=== PATIENT | female | born 1950 | race Caucasian/White ===

== ENCOUNTER → 2018-09-25 | Outpatient (CLI) | payer OTHER ==
[~2018-09-25] MED LIST: HYDACE5 PO
[2018-09-25 15:54] LABS: BASOPHILS ABSOLUTE AUTO 0.06 K/mm3 (0.00-0.23); BASOPHILS PERCENT AUTO 1 % (0-2); EOSINOPHILS ABSOLUTE AUTO 0.33 K/mm3 (0.00-0.68); EOSINOPHILS PERCENT AUTO 6 % (0-6); Hematocrit 42.2 % (33.0-51.0); Hemoglobin 14.4 g/dL (11.5-16.0); IMMATURE GRAN ABSOLUTE AUTO 0.02 K/mm3 (0.00-0.10); IMMATURE GRAN PERCENT AUTO 0 % (0-1); LYMPHOCYTES ABSOLUTE AUTO 1.79 K/mm3 (0.84-5.20); LYMPHOCYTES PERCENT AUTO 31 % (21-46); MONOCYTES ABSOLUTE AUTO 0.47 K/mm3 (0.16-1.47); MONOCYTES PERCENT AUTO 8 % (4-13); Mean Corpuscular HGB 32.8 pg (26.0-34.0); Mean Corpuscular HGB Conc 34.1 g/dL (31.5-36.5); Mean Corpuscular Volume 96 fL (80-100); Mean Platelet Volume 8.7 fL (9.1-12.4); NEUTROPHILS PERCENT AUTO 54 % (41-73); Platelet Count 196 K/mm3 (150-400); RDW Standard Deviation 41.9 fL (35.1-46.3); Red Blood Cell Count 4.39 M/mm3 (3.80-5.20); White Blood Cell Count 5.77 K/mm3 (4.00-11.30)
[2018-09-25 16:06] LABS: Alanine Aminotransfer (ALT/SGP 25 U/L (12-78); Albumin, Blood 3.9 g/dL (3.4-5.0); Albumin/Globulin Ratio 1.2 (0.8-1.8); Alk Phos 83 U/L (40-126); Anion Gap 9 mmol/L (6-16); Aspartate Aminotrans (AST/SGOT 18 U/L (12-37); Bilirubin, Total 0.4 mg/dL (0.1-1.0); Blood Urea Nitrogen 17 mg/dL (8-24); Bun/Creatinine Ratio 19.3 (12.0-20.0); CO2, Blood 27 mmol/L (21-32); Calcium, Blood 8.6 mg/dL (8.5-10.1); Chloride, Blood 104 mmol/L (98-108); Creatinine, Blood 0.88 mg/dL (0.40-1.00); Globulin, Blood 3.3 g/dL (2.2-4.0); Glomerular Filtration Rate >60 (60-); Glucose, Blood 108 mg/dL (70-99); Potassium, Blood 4.5 mmol/L (3.5-5.5); Sodium, Blood 140 mmol/L (136-145); Total Protein, Blood 7.2 g/dL (6.4-8.2)
== END | disposition home or self-care (01) ==
LOC: LAB EV 15:50 → LAB SHORT 15:50
PROVIDERS: General Practice
DX: R10.32 Left lower quadrant pain (principal)
CPT/HCPCS: 80053; 85025

== ENCOUNTER 2021-02-25 06:33 | Day surgery (SDC) | payer OTHER ==
[~2021-02-25] VITALS: Ht 160 cm; Wt 63.5 kg
[~2021-02-25 06:33] MED LIST changes: +Acetaminophen650 M1; +BUPR150ER PO; +Budeprion Xl300 MG PO; +FISH OIL EC 1,1 EAC1; +Hair, Skin & N1 EACH; +LAMO100; +LEVSOD100 PO; +MYRBETRIQ25 MG; +NAPR500EC; +PAROXETINE7.5 MG; +TRIPLE FLEX CA1 EACH; +Valtrex1000 MG; +Vitamin D2000 UNIT PO
[2021-02-25] MEDS ORDERED: VALA500 PO (07:01)
[2021-02-25] MEDS ORDERED: CLOP75 PO (09:08)
[2021-02-25] MEDS ORDERED: ASPI81CH PO (09:08)
[2021-02-25] MEDS ORDERED: ATOR20 PO (09:09)
--- NOTE | 2021-02-25 09:44 | NUR ---
PT LAYING IN RECLINER AND APPEARS IN NO ACUTE DISTRESS. PT PROVIDED WITH TWO NEW WARM BLANKETS. RRAD ACCESS WITH NO OOZING, HEMATOMA OR BLEEDING NOTED. PT DENIES ANY PAIN OR ANY OTHER CONCERNS. VSS. WILL CONTINUE TO MONITOR.
--- NOTE | 2021-02-25 10:54 | NUR ---
3mL AIR RELEASED FROM TR BAND. NO OOZING OR HEMATOMA NOTED. SMALL AMOUNT OF TRACK BLEEDING NOTED. PT DENIES ANY PAIN. VSS. WILL CONTINUE TO MONITOR.
--- NOTE | 2021-02-25 11:10 | NUR ---
all air removed from TR band-cdi no hematoma noted.
--- NOTE | 2021-02-25 11:59 | NUR ---
DISCHARGE PT AMBULATED TO RESTROOM AND DRESSED SELF WITH NO COMPLICATIONS. PTS RRAD ACCESS SITE CLEANED, CLOTH DOT DRESSING APPLIED. NO BLEEDING, OOZING OR HEMATOMA NOTED. PT AND SPOUSE STATE THEIR UNDERSTANDING OF DISCHARGE AND SITE CARE INSTRUCTIONS AND BOTH DENY ANY QUESTIONS OR CONCERNS UPON DC. IV DCD WITH CATH INTACT. VSS. PT TAKEN TO EXIT VIA WHEELCHAIR WHERE WAS WAITING WITH VEHICLE.
--- NOTE | 2021-02-25 12:05 | NUR ---
pt discharged with white arm board on arm and a sling.
== END 2021-02-25 12:00 | disposition home or self-care (01) ==
LOC: MHTC 06:33
DX: I35.0 Nonrheumatic aortic (valve) stenosis (principal); I25.10 Atherosclerotic heart disease of native coronary artery without angina pectoris; I34.0 Nonrheumatic mitral (valve) insufficiency; I38 Endocarditis, valve unspecified; I51.89 Other ill-defined heart diseases; I10 Essential (primary) hypertension; E03.9 Hypothyroidism, unspecified; G47.33 Obstructive sleep apnea (adult) (pediatric); F32.9 Major depressive disorder, single episode, unspecified; M19.90 Unspecified osteoarthritis, unspecified site; E78.00 Pure hypercholesterolemia, unspecified; Z88.0 Allergy status to penicillin; Z86.711 Personal history of pulmonary embolism; Z98.1 Arthrodesis status; Z96.611 Presence of right artificial shoulder joint
CPT/HCPCS: 76937; 85347; 93454; 99152; 99153; A9270; C1725; C1769; C1874; C1887; C1894; C9600; J1644; J2250; J2370; J3010; J7030; J7050; Q9967

== ENCOUNTER → 2021-06-30 | Outpatient (CLI) | payer OTHER ==
[~2021-06-30] MED LIST changes: +ASPI81CH PO; +ATOR20 PO; +CLOP75 PO; +VALA500 PO
[2021-06-30 17:12] LABS: BASOPHILS ABSOLUTE AUTO 0.06 K/mm3 (0.00-0.23); BASOPHILS PERCENT AUTO 1 % (0-2); EOSINOPHILS PERCENT AUTO 9 % (0-6); Hematocrit 29.3 % (33.0-51.0); Hemoglobin 9.3 g/dL (11.5-16.0); IMMATURE GRAN ABSOLUTE AUTO 0.03 K/mm3 (0.00-0.10); IMMATURE GRAN PERCENT AUTO 1 % (0-1); LYMPHOCYTES ABSOLUTE AUTO 1.08 K/mm3 (0.84-5.20); LYMPHOCYTES PERCENT AUTO 23 % (21-46); MONOCYTES PERCENT AUTO 13 % (4-13); Mean Corpuscular HGB 32.4 pg (26.0-34.0); Mean Corpuscular HGB Conc 31.7 g/dL (31.5-36.5); Mean Corpuscular Volume 102 fL (80-100); Mean Platelet Volume 9.7 fL (9.1-12.4); NEUTROPHILS ABSOLUTE AUTO 2.56 K/mm3 (1.96-9.15); NEUTROPHILS PERCENT AUTO 54 % (41-73); Platelet Count 221 K/mm3 (150-400); RDW Coefficient Variation 18.6 % (11.7-14.2); RDW Standard Deviation 66.7 fL (35.1-46.3); Red Blood Cell Count 2.87 M/mm3 (3.80-5.20); White Blood Cell Count 4.73 K/mm3 (4.00-11.30)
[2021-06-30 17:20] LABS: Bun/Creatinine Ratio 19.8 (12.0-20.0); Calcium, Blood 8.2 mg/dL (8.5-10.1); Creatinine, Blood 1.01 mg/dL (0.40-1.00); Magnesium, Blood 2.2 mg/dL (1.6-2.4)
== END | disposition home or self-care (01) ==
LOC: LAB SHORT 17:04
PROVIDERS: Family Medicine
DX: I35.0 Nonrheumatic aortic (valve) stenosis (principal); E83.42 Hypomagnesemia
CPT/HCPCS: 80048; 83735; 85025

== ENCOUNTER 2025-01-01 12:15 | Day surgery (SDC) | payer OTHER ==
[~2025-01-01] VITALS: Ht 160 cm; Wt 62.7 kg
[~2025-01-01 12:15] MED LIST changes: +Lactated Ringer's 0 ML IV ONE
[2025-01-01] MEDS ORDERED: CeFAZolin Sodium 2,000 MG VIAL ONE (12:35)
[2025-01-01] MEDS ORDERED: Lidocaine HCl 2% 10 ML SDA ONE (13:22)
[2025-01-01 13:24] VITALS: BP 128/68
[2025-01-01] MEDS ORDERED: Lactated Ringer's 1,000 ML IV ONE (13:24)
--- NOTE | 2025-01-01 13:25 | NUR ---
01/01/25 1325 Adler,Nino SWELLING NOTED ON RIGHT HAND. DR BEAN IS AWARE.
[2025-01-01] MEDS ORDERED: propofoL 0 ML IV ONE (14:26)
== END 2025-01-01 15:15 | disposition home or self-care (01) ==
LOC: ORSCSDS 12:15
DX: S52.021A Displaced fracture of olecranon process without intraarticular extension of right ulna, initial encounter for closed fracture (principal); I26.99 Other pulmonary embolism without acute cor pulmonale; I27.20 Pulmonary hypertension, unspecified; S52.032A Displaced fracture of olecranon process with intraarticular extension of left ulna, initial encounter for closed fracture; Z01.818 Encounter for other preprocedural examination; Z53.9 Procedure and treatment not carried out, unspecified reason
CPT/HCPCS: J0690; J2003; J2704; J7120

== ENCOUNTER 2025-01-04 09:50 | Day surgery (SDC) | payer OTHER ==
[~2025-01-04] VITALS: Ht 160 cm; Wt 61.0 kg
[~2025-01-04 09:50] MED LIST changes: -Lactated Ringer's 0 ML IV ONE; +Lactated Ringer's 1,000 ML IV ONE; +Lidocaine HCl 2% 10 ML SDA ONE
[2025-01-04] MEDS ORDERED: CeFAZolin Sodium 2,000 MG VIAL ONE (10:13)
[2025-01-04] MEDS ORDERED: ALEN70 PO (10:24)
[2025-01-04] MEDS ORDERED: BENADRYL25 MG PO (10:25)
[2025-01-04] MEDS ORDERED: DOCU100 PO (10:26)
[2025-01-04] MEDS ORDERED: CALCIUM CIT 311 EAC7 PO (10:26)
[2025-01-04] MEDS ORDERED: [UNRECOGNIZED DRUG - OTHER] PO (10:27)
[2025-01-04] MEDS ORDERED: FISH OIL 1,2001 EAC4 PO (10:27)
[2025-01-04] MEDS ORDERED: GLUCO/CHON (10:28)
[2025-01-04] MEDS ORDERED: IRON18 M1 PO (10:29)
[2025-01-04] MEDS ORDERED: LAMO100 PO (10:29)
[2025-01-04] MEDS ORDERED: MULVITA PO (10:31)
[2025-01-04] MEDS ORDERED: MELATONIN5 M1 PO (10:31)
[2025-01-04] MEDS ORDERED: MAGCIT300 PO (10:31)
[2025-01-04] MEDS ORDERED: PARO10 PO (10:32)
[2025-01-04] MEDS ORDERED: SENN187 PO (10:33)
[2025-01-04] MEDS ORDERED: EUTHYROX88 MCG PO (10:33)
[2025-01-04] MEDS ORDERED: PROBIOTIC (10:33)
[2025-01-04] MEDS ORDERED: Lactated Ringer's 1,000 ML IV ONE (10:43)
[2025-01-04] MEDS ORDERED: FentaNYL Citrate 50 MCG/ML 2 ML Injection ONE (11:10)
[2025-01-04] MEDS ORDERED: Midazolam HCl 1MG / ML 2ML Vial ONE (11:10)
[2025-01-04] MEDS ORDERED: Bupivacaine 0.5% HCl 5 MG/ML 30MLVIAL ONE (11:30)
[2025-01-04] MEDS ORDERED: propofoL 20 ML IV ONE (11:55)
[2025-01-04] MEDS ORDERED: Rocuronium Bromide 10 MG/ML 5ML Injection IV ONE (11:56)
--- NOTE | 2025-01-04 11:57 | NUR ---
01/04/25 1157 AdlerNino valenzuela TIME OUT AT 1138. DR HOYOS PERFORMED NERVE BLOCK. PT TOLERATED BLOCK WELL.
[2025-01-04] MEDS ORDERED: Dexamethasone Sod Phos 10 MG/ML 1ML VIAL ONE (12:43)
[2025-01-04] MEDS ORDERED: Ondansetron HCl 2 MG / ML 2ML Vial ONE (12:43)
[2025-01-04 15:11] VITALS: BP 114/61
== END 2025-01-04 15:23 | disposition home or self-care (01) ==
LOC: ORSCSDS 09:50
PROVIDERS: Orthopaedic Surgery
PROC: 0PSK04Z Reposition Right Ulna with Internal Fixation Device, Open Approach (ICD-10-PCS; principal; 2025-01-04 11:15)
DX: S52.021A Displaced fracture of olecranon process without intraarticular extension of right ulna, initial encounter for closed fracture (principal); I25.10 Atherosclerotic heart disease of native coronary artery without angina pectoris; E78.5 Hyperlipidemia, unspecified; G47.33 Obstructive sleep apnea (adult) (pediatric); E03.9 Hypothyroidism, unspecified; F32.A Depression, unspecified; Z79.899 Other long term (current) drug therapy; Z79.02 Long term (current) use of antithrombotics/antiplatelets; Z79.82 Long term (current) use of aspirin
CPT/HCPCS: C1713; J0690; J1100; J2003; J2250; J2405; J2704; J3010; J7120